=== PATIENT | male | born 1995 | race Asian ===

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

== ENCOUNTER 2017-01-14 12:28 | Emergency (ER) | payer OTHER ==
[2017-01-14 12:41] LABS: URINE APPEARANCE CLEAR; URINE BILIRUBIN NEG (NEG); URINE BLOOD NEG (NEG); URINE COLOR YELLOW; URINE GLUCOSE NEG (NEG); URINE KETONE 1+ (NEG); URINE LEUKOCYTE ESTERASE NEG (NEG); URINE NITRATE NEG (NEG); URINE PH 6.5 (5-8); URINE PROTEIN NEG (NEG); URINE UROBILINOGEN 0.2 MG/DL (NEG)
[2017-01-14 12:46] LABS: URINE SOURCE CATH
[2017-01-14 12:47] LABS: CULTURE INDICATED? NO
== END 2017-01-14 15:10 | disposition other institution (70) ==
LOC: CED 12:28
PROVIDERS: Emergency Medicine
DX: R33.9 Retention of urine, unspecified (principal); F17.200 Nicotine dependence, unspecified, uncomplicated
CPT/HCPCS: 51701; 81003; 99284